=== PATIENT | male | born 1950 | race Native Hawaiian/Other Pacific Islander ===

== ENCOUNTER 2018-04-14 09:15 | Outpatient (CLI) | payer OTHER ==
[~2018-04-14 09:15] MED LIST: AMITRIPTYLIN50 MG PO; DULO60CA2 PO; GRALISE600 MG OR; METHADONE10 MG PO; METOPROLOL25 M1 PO; OMEPRAZOLE20 M1 OR; PLAVIX75 MG PO; UNITH DIRECT25 MCG OR
[2018-04-14 09:43] LABS: PLATELET COUNT 148 K/uL (142-355)
[2018-04-14 09:46] LABS: POTASSIUM 4.1 mmol/L (3.6-5.2)
[2018-04-14 10:34] LABS: PARTIAL THROMBOPLASTIN TIME 24.4 SECONDS (24.5-33.6)
== END 2018-04-14 19:48 | disposition home or self-care (01) ==
LOC: LABW 09:15
PROVIDERS: Neurological Surgery
DX: Z01.812 Encounter for preprocedural laboratory examination (principal); Z79.01 Long term (current) use of anticoagulants; Z51.81 Encounter for therapeutic drug level monitoring; M47.22 Other spondylosis with radiculopathy, cervical region; E66.3 Overweight; M48.061 Spinal stenosis, lumbar region without neurogenic claudication; Z01.818 Encounter for other preprocedural examination
CPT/HCPCS: 36415; 80048; 81000; 85027; 85610; 85730; 93005

== ENCOUNTER 2018-12-25 08:00 | Outpatient (CLI) | payer OTHER ==
[2018-12-25 08:40] LABS: POTASSIUM 4.1 mmol/L (3.6-5.2)
== END 2018-12-25 20:19 | disposition home or self-care (01) ==
LOC: LABW 08:00
PROVIDERS: Internal Medicine
DX: I25.118 Atherosclerotic heart disease of native coronary artery with other forms of angina pectoris (principal); Z79.899 Other long term (current) drug therapy
CPT/HCPCS: 36415; 80053; 80061; 84443

== ENCOUNTER 2019-09-19 17:16 | Emergency (ER) | payer OTHER ==
[~2019-09-19] VITALS: Ht 180.3 cm; Wt 104.3 kg
[2019-09-19 17:20] VITALS: TEMP 97.9
[2019-09-19 17:48] LABS: PLATELET COUNT 189 K/uL (142-355)
[2019-09-19 17:54] LABS: POTASSIUM 3.9 mmol/L (3.6-5.2); SODIUM 136 mmol/L (136-145)
[2019-09-19 20:08] VITALS: BP 135/86
== END 2019-09-19 20:12 | disposition home or self-care (01) ==
LOC: ED 17:16
PROVIDERS: Emergency Medicine
DX: I20.8 Other forms of angina pectoris (principal); I44.4 Left anterior fascicular block
CPT/HCPCS: 36415; 80053; 83690; 83735; 84484; 85027; 93005; 99284

== ENCOUNTER 2021-02-27 15:26 | Emergency (ER) | payer OTHER ==
[~2021-02-27] VITALS: Ht 180.3 cm; Wt 103.9 kg
[2021-02-27 15:42] VITALS: BP 143/82; TEMP 98.4
== END 2021-02-27 18:34 | disposition home or self-care (01) ==
LOC: ED 15:26
DX: S20.211A Contusion of right front wall of thorax, initial encounter (principal); W18.39XA Other fall on same level, initial encounter; Y92.89 Other specified places as the place of occurrence of the external cause
CPT/HCPCS: 99282

== ENCOUNTER 2021-03-06 09:28 | Outpatient (CLI) | payer OTHER | END 2021-03-06 19:15 | disposition home or self-care (01) | LOC: CT 09:28 | PROVIDERS: ATTEND Physician Assistant | DX: R10.84 Generalized abdominal pain (principal) ==

== ENCOUNTER 2022-05-15 08:15 | Outpatient (CLI) | payer OTHER | END 2022-05-15 18:49 | disposition home or self-care (01) | LOC: US 08:15 | PROVIDERS: ATTEND Internal Medicine Gastroenterology | DX: R74.8 Abnormal levels of other serum enzymes (principal) ==